=== PATIENT | male | born 1945 | race Caucasian/White ===

== ENCOUNTER → 2023-08-25 | Outpatient (CLI) | payer OTHER, SELFPAY ==
--- NOTE | 2023-08-25 07:51 | ECHOCS_ITS ---
Reason For Study: SOB Procedure This was a 2D Doppler, Color Flow transthoracic echocardiogram. The study was technically difficult. Contrast injection was performed. Exam performed in department. Left Ventricle Normal LV size. Left ventricular systolic function is normal. The estimated ejection fraction is 60 %. Stage 1 diastolic dysfunction. No regional wall motion abnormalities noted. Right Ventricle Normal RV size. Normal systolic function. Atria Normal left atrium. Normal right atrium. Mitral Valve Normal mitral valve. Tricuspid Valve Normal tricuspid valve. Aortic Valve Trisinus/trileaflet aortic valve. Pulmonic Valve Normal pulmonic valve. Great Vessels Normal aortic root. The pulmonary artery is normal size. Normal inferior vena cava. Pericardium/Pleural No pericardial effusion. Small left pleural effusion. Medication 22 gauge I.V. with prn adaptor inserted into right arm. Diluted definity 3.5ml given slow IV push to enhance endocardial definition. MMode/2D Measurements & Calculations LVIDd: 4.5 cm IVSd: 0.63 cm LA dimension: 3.4 cm LVIDs: 3.3 cm LVPWd: 0.54 cm FS: 28.1 % LAV(MOD-sp4): 41.1 ml LVAd ap4: 28.8 cm2 SV(MOD-sp4): 56.3 ml LVLd ap4: 7.6 cm EDV(MOD-sp4): 90.5 ml EDV(sp4-el): 92.9 ml LVAs ap4: 15.5 cm2 LVLs ap4: 5.9 cm ESV(MOD-sp4): 34.2 ml ESV(sp4-el): 34.9 ml EF(MOD-sp4): 62.2 % EF(sp4-el): 62.5 % SV(sp4-el): 58.0 ml LA A4 area: 16.7 cm2 Time Measurements MV dec time: 0.23 sec Doppler Measurements & Calculations MV E max parish: 63.6 cm/sec Lat Peak E' Parish: 9.5 cm/sec Med Peak E' Parish: 6.4 cm/sec MV A max parish: 70.6 cm/sec E/E' lat: 6.7 E/E' med: 9.9 MV E/A: 0.90 MV V2 max: 70.9 cm/sec MV P1/2t max parish: 70.4 cm/sec Ao V2 max: 105.4 cm/sec MV max P.0 mmHg MV P1/2t: 76.1 msec Ao max P.4 mmHg MV V2 mean: 41.3 cm/sec MV mean P.80 mmHg MV dec slope: 271.0 cm/sec2 MV V2 VTI: 25.2 cm MVA(P1/2t): 2.9 cm2 LV V1 max: 64.6 cm/sec PA V2 max: 49.9 cm/sec LV V1 max P.7 mmHg ECHO/Echo Complete W/ Contrast Interpretation Summary Normal LV size. Left ventricular systolic function is normal. The estimated ejection fraction is 60 %. Stage 1 diastolic dysfunction. Small left pleural effusion. Ordering Physician: Eladio Boyd Performed By: Quang Blair [facility]
[2023-08-25 11:03] LABS: Free T3 2.1 pg/mL (2.18-3.98); T4 Free Direct 1.26 ng/dL (0.76-1.46); Thyroid Stim Hormone (TSH) 4.37 uIU/mL (0.358-3.74)
== END | disposition home or self-care (01) ==
PROVIDERS: Visit Provider Chiropractor
DX: R06.02 Shortness of breath (principal); I25.9 Chronic ischemic heart disease, unspecified; E03.9 Hypothyroidism, unspecified
CPT/HCPCS: 36415; 84439; 84443; 84481; 93306; Q9957; A4216; C8929